=== PATIENT | female | born 1955 | race Caucasian/White ===

== ENCOUNTER 2025-07-18 15:24 | Outpatient (RCR) | payer OTHER, SELFPAY | END 2025-07-18 23:59 | disposition home or self-care (01) | LOC: CRHB 15:24 | PROVIDERS: ATTENDING PHYSICIAN Internal Medicine Cardiovascular Disease; FAMILY PHYSICIAN Family Medicine | DX: Z95.4 Presence of other heart-valve replacement (principal) | CPT/HCPCS: 93798; G0422; G0423 ==

== ENCOUNTER 2025-08-08 14:51 | Outpatient (RCR) | payer OTHER, SELFPAY | END 2025-08-19 15:48 | disposition home or self-care (01) | LOC: CRHB 14:51 | PROVIDERS: ATTENDING PHYSICIAN Internal Medicine Cardiovascular Disease; FAMILY PHYSICIAN Family Medicine | DX: Z95.4 Presence of other heart-valve replacement (principal) | CPT/HCPCS: G0422; G0423 ==